=== PATIENT | male | born 1990 | race Caucasian/White ===

== ENCOUNTER 2022-11-02 14:14 | Observation (INO) | payer BC ==
[2022-11-02] MEDS ORDERED: Sodium Chloride 0.9% 1,000 ML IV ONE (14:22)
[2022-11-02] MEDS ORDERED: LORazepam 0.5 MG Tab PO ONE (14:25)
[2022-11-02] MEDS ORDERED: Sodium Chloride 0.9% 500 ML IV SCH (14:30)
[2022-11-02] MEDS ORDERED: Potassium Chloride 10 MEQ Tab.ER PO ONE (14:39)
[2022-11-02 15:29] LABS: BILIRUBIN DIRECT 9.5 mg/dL (0.0-0.3); BILIRUBIN INDIRECT 1.6 mg/dL; BILIRUBIN TOTAL 11.1 mg/dL (0.0-1.0)
[2022-11-02] MEDS: Folic Acid 1 MG, Multivitamins 1 TAB, Thiamine 100 MG, Magnesium Oxide 500 MG PO SCH ×4 (20:01)
[2022-11-03] MEDS: Sodium Chloride 0.9% 1,000 ML IV SCH ×3 (02:06→21:58)
[2022-11-03 08:07] LABS: BASOPHILS ABSOLUTE AUTO 0.01 10^3/uL (0.00-0.50); BASOPHILS PERCENT AUTO 0.2 % (0-1); EOSINOPHILS ABSOLUTE AUTO 0.06 10^3/uL (0.00-1.50); EOSINOPHILS PERCENT AUTO 1.4 % (0-6); HEMATOCRIT 37.8 % (42.0-52.0); IMMATURE GRAN ABSOLUTE AUTO 0.03 10^3/uL (0.00-0.49); IMMATURE GRAN PERCENT AUTO 0.7 % (0.0-4.9); LYMPHOCYTES ABSOLUTE AUTO 0.93 10^3/uL (0.60-5.00); MEAN CORPUSCULAR HGB CONC 34.4 g/dL (32.0-36.0); MONOCYTES ABSOLUTE AUTO 0.63 10^3/uL (0.00-1.50); MONOCYTES PERCENT AUTO 14.3 % (0-10); NEUTROPHILS ABSOLUTE AUTO 2.76 x10^3/uL (1.80-8.00); NEUTROPHILS PERCENT AUTO 62.4 % (41-71); PLATELET COUNT,PLT 184 10^3/uL (150-400); WHITE BLOOD CELL COUNT,WBC 4.4 10^3/uL (4.0-11.0)
[2022-11-03 08:11] LABS: A/G RATIO 0.8 (0.9-1.8); ALBUMIN 2.7 g/dL (3.4-5.0); BILIRUBIN DIRECT 7.1 mg/dL (0.0-0.3); BILIRUBIN INDIRECT 1.5 mg/dL; BILIRUBIN TOTAL 8.6 mg/dL (0.0-1.0); CALCIUM 8.8 mg/dL (8.4-10.1); CREATININE 0.9 mg/dL (0.7-1.3); EST CRCL DRUG DOSING (CG) 122.89 mL/min; POTASSIUM,K 3.7 mEq/L (3.5-5.0); PROTEIN TOTAL,TP 6.3 g/dL (6.4-8.2)
[2022-11-03] MEDS: Escitalopram 10 MG Tab PO SCH (08:22)
[2022-11-03] MEDS: Folic Acid 1 MG, Multivitamins 1 TAB, Thiamine 100 MG, Magnesium Oxide 500 MG PO SCH ×4 (08:23)
[2022-11-03] MEDS: Pantoprazole 40 MG Tab.CR PO SCH (08:23)
[2022-11-03] MEDS: LORazepam 0.5 MG Tab PO PRN (11:58)
[2022-11-04] MEDS: LORazepam 0.5 MG Tab PO PRN (04:13)
[2022-11-04] MEDS: Pantoprazole 40 MG Tab.CR PO SCH (07:22)
[2022-11-04] MEDS: Folic Acid 1 MG, Multivitamins 1 TAB, Thiamine 100 MG, Magnesium Oxide 500 MG PO SCH ×4 (07:28)
[2022-11-04] MEDS: Escitalopram 10 MG Tab PO SCH (07:29)
[2022-11-04 07:33] LABS: BASOPHILS ABSOLUTE AUTO 0.01 10^3/uL (0.00-0.50); BASOPHILS PERCENT AUTO 0.2 % (0-1); EOSINOPHILS ABSOLUTE AUTO 0.05 10^3/uL (0.00-1.50); EOSINOPHILS PERCENT AUTO 1.1 % (0-6); HEMOGLOBIN 13.5 g/dL (14.0-18.0); IMMATURE GRAN ABSOLUTE AUTO 0.05 10^3/uL (0.00-0.49); IMMATURE GRAN PERCENT AUTO 1.1 % (0.0-4.9); LYMPHOCYTES ABSOLUTE AUTO 1.04 10^3/uL (0.60-5.00); LYMPHOCYTES PERCENT AUTO 23.3 % (24-44); MEAN CORPUSCULAR HEMOGLOBIN 31.3 pg (27.0-32.0); MEAN CORPUSCULAR HGB CONC 34.6 g/dL (32.0-36.0); MEAN CORPUSCULAR VOLUME 90.5 fL (83.0-97.0); MONOCYTES PERCENT AUTO 13.4 % (0-10); NEUTROPHILS ABSOLUTE AUTO 2.72 x10^3/uL (1.80-8.00); NEUTROPHILS PERCENT AUTO 60.9 % (41-71); PLATELET COUNT,PLT 226 10^3/uL (150-400); RED BLOOD CELL COUNT 4.31 x10^6/uL (4.50-6.00); WHITE BLOOD CELL COUNT,WBC 4.5 10^3/uL (4.0-11.0)
[2022-11-04 10:22] LABS: A/G RATIO 0.7 (0.9-1.8); ALBUMIN 2.9 g/dL (3.4-5.0); BILIRUBIN DIRECT 5.7 mg/dL (0.0-0.3); BILIRUBIN INDIRECT 1.2 mg/dL; BILIRUBIN TOTAL 6.9 mg/dL (0.0-1.0); CREATININE 0.9 mg/dL (0.7-1.3); EST CRCL DRUG DOSING (CG) 122.89 mL/min; POTASSIUM,K 3.3 mEq/L (3.5-5.0); PROTEIN TOTAL,TP 6.9 g/dL (6.4-8.2)
== END 2022-11-04 09:55 | disposition home or self-care (01) ==
LOC: CC.ED 14:14 → UNDOADMOB 17:19 → CC.MS 17:19
PROVIDERS: ADMIT Physician Assistant Medical; ATTEND Physician Assistant Medical
DX: K70.10 Alcoholic hepatitis without ascites (principal); E87.6 Hypokalemia; E87.1 Hypo-osmolality and hyponatremia; K76.0 Fatty (change of) liver, not elsewhere classified; R16.0 Hepatomegaly, not elsewhere classified; K82.8 Other specified diseases of gallbladder; Z79.899 Other long term (current) drug therapy
CPT/HCPCS: 36415; 76705; 80048; 80076; 82247; 82248; 85025; 96360; 96361; 99285-25; A9270-GY; G0378; J7030; J7040